=== PATIENT | male | born 1960 | race African-American/Black ===

== ENCOUNTER 2019-06-06 09:49 | Emergency (ER) | payer OTHER, BC, SELFPAY ==
[~2019-06-06] VITALS: Ht 180.3 cm; Wt 67.1 kg
[2019-06-06 09:51] VITALS: BP 136/74
[2019-06-06 10:35] LABS: BASOPHILS # (AUTO) 0.1 K/uL (0.00-0.22); BASOPHILS % (AUTO) 0.7 % (0.0-2.0); EOSINOPHILS % (AUTO) 0.2 % (0.0-4.0); HEMATOCRIT 36.2 % (36-52); LYMPHOCYTES # (AUTO) 0.7 K/uL (2.0-11.5); LYMPHOCYTES % (AUTO) 5.7 % (20.5-51.1); MEAN CORPUSCULAR HEMOGLOBIN 31 pg (27-31); MEAN CORPUSCULAR HGB CONC 33 g/dL (33-37); MEAN CORPUSCULAR VOLUME 94.6 fL (80-94); MONOCYTES # (AUTO) 1.2 K/uL (0.8-1.0); NEUTROPHILS % (AUTO) 83.4 % (42.2-75.2); PLATELET COUNT (AUTO) 245 K/uL (140-450); RED BLOOD CELL COUNT(AUTO) 3.83 MIL/uL (4.20-6.10)
[2019-06-06 10:52] LABS: ALBUMIN 2.7 g/dL (3.4-5.0); TOTAL BILIRUBIN 0.5 mg/dL (0.0-1.0)
[2019-06-06 10:57] LABS: CARBON DIOXIDE 21.8 mmol/L (21-32); POTASSIUM 4.3 mmol/L (3.5-5.1)
[2019-06-06 11:05] LABS: ANION GAP 24.5 (8-16)
[2019-06-06 11:13] LABS: WHITE BLOOD COUNT (AUTO) 11.9 K/uL (4.8-10.8)
[2019-06-06 11:42] VITALS: BP 131/77
== END 2019-06-06 11:43 | disposition home or self-care (01) ==
LOC: MED 09:49 → EEVIPCON 09:49 → MED 11:43
DX: E11.22 Type 2 diabetes mellitus with diabetic chronic kidney disease (principal); Z20.828 Contact with and (suspected) exposure to other viral communicable diseases; N18.6 End stage renal disease; J18.9 Pneumonia, unspecified organism; Z99.2 Dependence on renal dialysis; Z88.0 Allergy status to penicillin; Z88.1 Allergy status to other antibiotic agents; Z98.890 Other specified postprocedural states
CPT/HCPCS: 36415; 71045; 80053; 85025; 87635; 99284; Q0092

== ENCOUNTER 2019-06-10 15:09 | Inpatient (IN) | payer OTHER, BC ==
[~2019-06-10] VITALS: Ht 180.3 cm; Wt 64.9 kg
[2019-06-10 15:15] VITALS: BP 120/66
--- NOTE | 2019-06-10 15:26 | NUR ---
Pt wheelchair assisted to bed 12
[2019-06-10] MEDS ORDERED: MORPHINE SULFATE 4 MG/ML SYR IVP ONE (15:40)
--- NOTE | 2019-06-10 15:47 | NUR ---
Pt moved to bed 5 via [facility]
--- NOTE | 2019-06-10 15:49 | NUR ---
DR. BEDOYA MADE AWARE THAT PT IS ANURIC.
--- NOTE | 2019-06-10 15:51 | NUR ---
XR AT BEDSIDE.
--- NOTE | 2019-06-10 15:55 | NUR ---
58 YO M C/C OF 10/10 LEFT FOOT PAIN. THE FOOT IS COLD TO TOUCH AND NECTROTIC WITH SLOUGHING. POSTERIOR TIBIAL PULSES FELT BILATERALLY. NOT ABLE TO PALPATE A DORSALIS PEDIS PULSE. PT SAYS HIS FOOT ALWAYS HURTS BUT HAS INCREASED TO 10/10 X2 WEEKS NOW, STATES HE WAS UNAWARE THERE WAS AN OPEN WOUND. PT HAS A PARTIAL L FOOT AMPUTATION THAT WAS PERFORMED 7 YEARS AGO. A&OX4. PT DENIES TRAVEL, SOB, COUGH, OR FEVER BUT STATES HE WAS SWABBED FOR COVID HERE 2 DAYS AGO AND IS WAITING FOR RESULTS. ALLERGIES TO PENICILLIN, AMOXICILLIN MED HX: LEFT FOOT AMPUTATION, DM, HTN, 25% EF PER PATIENT, BLIND RX: NOVALOG, LEVAMIR, LISINOPRIL, FOLIC ACID, MIDODRINE, NEPHROCAPS,
--- NOTE | 2019-06-10 15:55 | NUR ---
Note undone in EDM - 06/10/19 at 1628 by [facility] 58 YO M C/C OF 10/10 LEFT FOOT PAIN. THE FOOT IS COLD TO TOUCH AND NECTROTIC WITH SLOUGHING. PT SAYS HIS FOOT ALWAYS HURTS BUT HAS INCREASED TO 10/10 X1 WEEK NOW. PT HAS A PARTIAL L FOOT AMPUTATION THAT WAS PERFORMED 7 YEARS AGO. A&OX4. PT DENIES TRAVEL, SOB, COUGH, OR FEVER BUT STATES HE WAS SWABBED FOR COVID HERE 2 DAYS AGO AND IS WAITING FOR RESULTS. ALLERGIES TO PENICILLIN, AMOXICILLIN MED HX: LEFT FOOT AMPUTATION, DM, HTN, 25% EF PER PATIENT
[2019-06-10 16:29] LABS: BASOPHILS # (AUTO) 0.1 K/uL (0.00-0.22); BASOPHILS % (AUTO) 0.7 % (0.0-2.0); EOSINOPHILS # (AUTO) 0.3 K/uL (0-0.4); EOSINOPHILS % (AUTO) 2.4 % (0.0-4.0); HEMATOCRIT 33.5 % (36-52); HEMOGLOBIN 11.1 g/dL (12.0-18.0); LYMPHOCYTES % (AUTO) 7.3 % (20.5-51.1); MEAN CORPUSCULAR HEMOGLOBIN 31 pg (27-31); MEAN CORPUSCULAR HGB CONC 33 g/dL (33-37); MEAN CORPUSCULAR VOLUME 94.1 fL (80-94); MONOCYTES # (AUTO) 0.7 K/uL (0.8-1.0); MONOCYTES % (AUTO) 4.8 % (1.7-9.3); NEUTROPHILS # (AUTO) 11.7 K/uL (1.8-7.7); NEUTROPHILS % (AUTO) 84.8 % (42.2-75.2); PLATELET COUNT (AUTO) 229 K/uL (140-450); RED BLOOD CELL COUNT(AUTO) 3.56 MIL/uL (4.20-6.10); RED CELL DISTRIBUTION WIDTH 16.5 % (11.6-13.7); WHITE BLOOD COUNT (AUTO) 13.8 K/uL (4.8-10.8)
[2019-06-10] MEDS ORDERED: LEVOFLOXACIN 750 MG/D5W PREMIX 150 ML IV ONE (16:40)
[2019-06-10] MEDS ORDERED: NACL 0.9% 500 ML IV ONE (16:40)
[2019-06-10] MEDS ORDERED: MORPHINE SULFATE 2 MG/ML SYR IVP ONE (16:40)
[2019-06-10 16:45] LABS: PROTHROMBIN TIME 10.6 secs (10.8-13.4)
[2019-06-10 16:46] LABS: ALBUMIN 2.5 g/dL (3.4-5.0); ANION GAP 15.4 (8-16); CARBON DIOXIDE 27.8 mmol/L (21-32); POTASSIUM 4.2 mmol/L (3.5-5.1); TOTAL BILIRUBIN 0.4 mg/dL (0.0-1.0)
[2019-06-10 16:51] LABS: CREATININE 9.9 mg/dL (0.6-1.3)
[2019-06-10] MEDS ORDERED: ACETAMINOPHEN 325 MG TAB PO PRN (17:10)
[2019-06-10] MEDS ORDERED: DOCUSATE SODIUM 100 MG GELCAP PO PRN (17:10)
[2019-06-10] MEDS ORDERED: ONDANSETRON 4 MG/2 ML VIAL IM/IVP PRN (17:10)
[2019-06-10] MEDS ORDERED: VANCOMYCIN PER PHARMACY MC PRN (17:10)
--- NOTE | 2019-06-10 17:50 | NUR ---
PT RESTING IN BED, SIDE RAIL X1
[2019-06-10] MEDS ORDERED: DOXY100C9 PO (17:54)
[2019-06-10] MEDS ORDERED: INSU-1331 SC (17:55)
[2019-06-10] MEDS ORDERED: INSU100S54 SC (17:56)
[2019-06-10] MEDS ORDERED: DOCU100C16 PO (18:01)
[2019-06-10] MEDS ORDERED: SODI650T2 PO (18:02)
[2019-06-10] MEDS ORDERED: SEN30 PO (18:04)
[2019-06-10] MEDS ORDERED: MULT-1469 PO (18:06)
[2019-06-10] MEDS ORDERED: OMEP20TC12 PO (18:06)
[2019-06-10] MEDS ORDERED: CARV3.12 PO (18:09)
[2019-06-10] MEDS ORDERED: FOLI1TAB90 PO (18:09)
[2019-06-10] MEDS ORDERED: LISI2.5T12 PO (18:10)
[2019-06-10 18:33] LABS: MAGNESIUM 2.1 mg/dL (1.8-2.4); PHOSPHORUS 2.1 mg/dL (2.5-4.9); THYROID STIMULATING HORMONE 2.39 uIU/mL (0.34-3.74)
[2019-06-10] MEDS ORDERED: VANCOMYCIN 1,000 MG in DEXTROSE 5% 250 ML IV ONE (19:05)
--- NOTE | 2019-06-10 19:17 | NUR ---
RECEIVED BEDSIDE REPORT FROM ER NURSE. TRANSFERRED THE PATIENT SAFELY FROM [facility] TO HIS BED. PATIENT IS AOX4. RESPIRATION EVEN AND UNLABORED. NO SOB. DENIES PAIN. PATIENT IS BLIND. IV SITE TO LFA 18G. PATIENT IS ANURIC PER ENDORSEMENT. DIALYSIS IS Q M-W-. DIALYSIS ACCESS TO LEFT GROIN. LEFT=RIGHT AV FISTULA IS NOT WORKING PER ENDORSED. (-) COVID SWAB. LOW BED AND BED ALARM IN PLACE. CALL LIGHT WITHIN REACH.
[2019-06-10] MEDS ORDERED: ALBUTEROL SULFATE/IPRATROPIU 3 ML SOL IH PRN (19:20)
[2019-06-10] MEDS ORDERED: SODIUM PHOS / POTASSIUM PHOS 1 PKT PDR PO ONE (19:20)
[2019-06-10] MEDS ORDERED: DEXTROSE 50% 50 ML SYR IVP PRN (19:20)
[2019-06-10] MEDS ORDERED: MORPHINE SULFATE 2 MG/ML SYR IVP PRN (19:20)
--- NOTE | 2019-06-10 19:20 | NUR ---
Patient will be admitted to care of [facility]. Admited to tele. Will go to room 124b. Belongings list completed. Report to chacorta VASQUEZ.
[2019-06-10] MEDS: NACL 0.9% 1,000 ML IV SCH (20:30)
[2019-06-10] MEDS: SODIUM BICARBONATE 650 MG TAB PO SCH (20:47)
[2019-06-10] MEDS: DOCUSATE SODIUM 100 MG GELCAP PO SCH (20:50)
[2019-06-10] MEDS: CARVEDILOL 3.125 MG TAB PO SCH (20:50)
[2019-06-10] MEDS ORDERED: VANCOMYCIN 1,000 MG VIAL ONE (20:58)
--- NOTE | 2019-06-10 21:00 | NUR ---
DUE MEDS GIVEN ORDERED. MED EDUCATION PROVIDED. PATIENT REFUSED COLACE SOFTGEL AND COREG TAB. EXPLAINED RISKS AND BENEFITS, STILL PATIENT REFUSED TO TAKE. CALL LIGHT WITHIN REACH. WILL CONTINUE TO MONITOR.
[2019-06-10] MEDS ORDERED: SODIUM PHOS / POTASSIUM PHOS 1 PKT PDR ONE (21:03)
--- NOTE | 2019-06-10 21:32 | NUR ---
PATIENT C/O L FOOT PAIN 10/08. ENCOURAGED RELAXATION, DEEP BREATHING. GAVE MORPHINE PRN OS ORDERED. TOLERATED WELL.
[2019-06-10] MEDS: BLOOD GLUCOSE MONITORING 1 DEV DEV FS SCH (21:33)
[2019-06-10] MEDS: INSULIN LISPRO SLIDING SCALE 100 UNITS/ML VIAL SUBQ PRN (21:40)
--- NOTE | 2019-06-10 22:32 | NUR ---
PATIENT IS SLEEPING, AROUSABLE TO VERBAL. DENIES PAIN.
[2019-06-11] VITALS: BP 123/55
--- NOTE | 2019-06-11 01:30 | NUR ---
PATIENT IS SLEEPING. RESPIRATION EVEN AND UNLABORED, NO SOB NOTED. CALL LIGHT WITHIN REACH. WILL CONTINUE TO MONITOR
--- NOTE | 2019-06-11 03:30 | NUR ---
GOT SWAB TO PATIENT'S L FOOT. TOLERATED WELL
[2019-06-11 04:00] VITALS: BP 123/57
[2019-06-11 06:16] LABS: BASOPHILS # (AUTO) 0.1 K/uL (0.00-0.22); BASOPHILS % (AUTO) 1.1 % (0.0-2.0); EOSINOPHILS # (AUTO) 0.3 K/uL (0-0.4); EOSINOPHILS % (AUTO) 2.7 % (0.0-4.0); HEMATOCRIT 31.8 % (36-52); HEMOGLOBIN 10.5 g/dL (12.0-18.0); MEAN CORPUSCULAR HEMOGLOBIN 31 pg (27-31); MEAN CORPUSCULAR HGB CONC 33 g/dL (33-37); MEAN CORPUSCULAR VOLUME 94.6 fL (80-94); MONOCYTES # (AUTO) 0.7 K/uL (0.8-1.0); MONOCYTES % (AUTO) 5.8 % (1.7-9.3); NEUTROPHILS # (AUTO) 9.5 K/uL (1.8-7.7); PLATELET COUNT (AUTO) 226 K/uL (140-450); RED BLOOD CELL COUNT(AUTO) 3.36 MIL/uL (4.20-6.10); RED CELL DISTRIBUTION WIDTH 16.2 % (11.6-13.7); WHITE BLOOD COUNT (AUTO) 11.6 K/uL (4.8-10.8)
--- NOTE | 2019-06-11 06:16 | NUR ---
CCHECKED PATIENT'S BLOOD SUGAR 177. WILL GIVE HUMALOG 2 UNITS ORDERED. PATIENT REMAINS ON NPO EXCEPT MEDS. DENIES PAIN. NOT IN ANY ACUTE DISTRESS. CONTINUE TO MONITOR.
[2019-06-11] MEDS: BLOOD GLUCOSE MONITORING 1 DEV DEV FS SCH ×4 (06:32→21:00)
[2019-06-11] MEDS: INSULIN LISPRO SLIDING SCALE 100 UNITS/ML VIAL SUBQ PRN ×2 (06:33→21:56)
[2019-06-11 06:43] LABS: ANION GAP 17.3 (8-16); CARBON DIOXIDE 25.2 mmol/L (21-32); POTASSIUM 4.5 mmol/L (3.5-5.1)
[2019-06-11 06:47] LABS: PHOSPHORUS 2.8 mg/dL (2.5-4.9)
[2019-06-11 06:51] LABS: CHOL/HDL RATIO 2.7 (1-4.5)
--- NOTE | 2019-06-11 07:16 | NUR ---
BEDSIDE REPORT WAS GIVEN TO AM SHIFT RN FOR CONTINUITY OF CARE.
--- NOTE | 2019-06-11 07:21 | NUR ---
RECEIVED BEDSIDE REPORT FROM NIGHTSHIFT NURSE. PT RESTING IN BED. ABLE TO MAKE NEEDS KNOWN. RESPIRATIONS EVEN AND UNLABORED WITH NO SOB OR RESPIRATORY DISTRESS. SKIN WARM AND DRY TO TOUCH. IV SITE IN LFA 18G IS CLEAN, DRY, AND INTACT. SAFETY MEASURES IN PLACE. WILL CONTINUE TO MONITOR
[2019-06-11 07:28] LABS: CREATININE 10.5 mg/dL (0.6-1.3)
--- NOTE | 2019-06-11 07:28 | NUR ---
RECEIVED CRITICAL LAB FROM CHEMISTRY. BUN 77 AND CR IS 10.5. RESIDENT IS AWARE. SAFETY MEASURES IN PLACE. WILL CONTINUE TO MONITOR
[2019-06-11 07:33] LABS: NEUTROPHILS % (AUTO) 81.4 % (42.2-75.2)
[2019-06-11 08:00] VITALS: BP 134/62
--- NOTE | 2019-06-11 09:45 | NUR ---
PODIATRY AT BEDSIDE TO DO WOUND CARE WELL ASSESSMENT. SAFETY MEASURES IN PLACE. WILL CONTINUE TO MONITOR
[2019-06-11] MEDS: DOCUSATE SODIUM 100 MG GELCAP PO SCH ×2 (10:26→22:07)
[2019-06-11] MEDS: LISINOPRIL 5 MG TAB PO SCH (10:27)
[2019-06-11] MEDS: SODIUM BICARBONATE 650 MG TAB PO SCH ×2 (10:27→22:08)
[2019-06-11] MEDS: VIT-B COMP/VIT-C/FOLIC ACID 1 TAB PO SCH (10:28)
[2019-06-11] MEDS: PANTOPRAZOLE 40 MG TABEC PO SCH (10:28)
[2019-06-11] MEDS: LACTOBACILLUS RHAMNOSUS GG 1 EACH CAP PO SCH (10:28)
[2019-06-11] MEDS: CINACALCET 30 MG TAB PO SCH ×3 (10:29→17:06)
[2019-06-11] MEDS: HYDROmorphone 1 MG/ML AMP IVP PRN ×2 (10:29→22:02)
[2019-06-11] MEDS: CARVEDILOL 3.125 MG TAB PO SCH ×2 (10:29→22:08)
--- NOTE | 2019-06-11 10:29 | NUR ---
PT CALLED AND COMPLAINED OF SEVERE PAIN. PRN PAIN MEDICATION ADMINISTERED PRESCRIBED PER MD ORDER. WASTED MED WITH 2ND NURSE. SAFETY MEASURES IN PLACE. WILL CONTINUE TO MONITOR
--- NOTE | 2019-06-11 10:35 | NUR ---
ADMINISTERED SCHED MED PRESCRIBED PER MD ORDER. PT TOLERATED WELL. MEDICATION EDUCATION PERFORMED. PT VERBALIZED UNDERSTANDING. SAFETY MEASURES IN PLACE. WILL CONTINUE TO MONITOR
--- NOTE | 2019-06-11 11:00 | NUR ---
PT IS GOING TO RECEIVE HD TODAY. DIALYSIS NURSE MITZI WAS MADE AWARE. SAFETY MEASURES IN PLACE. WILL CONTINUE TO MONITOR
--- NOTE | 2019-06-11 11:30 | NUR ---
PT BLOOD SUGAR IS 116. NO INSULIN COVERAGE NEEDED AT THIS TIME. SAFETY MEASURES IN PLACE. WILL CONTINUE TO MONITOR
[2019-06-11 12:00] VITALS: BP 124/58
[2019-06-11] MEDS ORDERED: VITAMIN A/VITAMIN D OINT 113 GM TUBE TP SCH (12:00)
--- NOTE | 2019-06-11 13:19 | NUR ---
ADMINISTERED SCHED MED PRESCRIBED PER MD ORDER. PT TOLERATED WELL. MEDICATION EDUCATION PERFORMED. PT VERBALIZED UNDERSTANDING. SAFETY MEASURES IN PLACE. WILL CONTINUE TO MONITOR
[2019-06-11] MEDS: HYDROcodone/APAP 5/325 MG 1 TAB TAB PO PRN (14:27)
--- NOTE | 2019-06-11 14:27 | NUR ---
PT CALLED AND COMPLAINED OF MODERATE PAIN. PRN PAIN MEDICATION NORCO ADMINISTERED PRESCRIBED PER MD ORDER. PT TOLERATED WELL. MEDICATION EDUCATION PERFORMED. PT VERBALIZED UNDERSTANDING. SAFETY MEASURES IN PLACE. WILL CONTINUE TO MONITOR
[2019-06-11 16:00] VITALS: BP 114/61
--- NOTE | 2019-06-11 16:30 | NUR ---
PT BLOOD SUGAR IS 146. NO INSULIN COVERAGE NEEDED AT THIS TIME. DIALYSIS NURSE ELÍAS IS HERE. REPORT GIVEN AT BEDSIDE. SAFETY MEASURES IN PLACE. WILL CONTINUE TO MONITOR
--- NOTE | 2019-06-11 17:07 | NUR ---
ADMINISTERED SCHED MED PRESCRIBED PER MD ORDER. PT TOLERATED WELL. MEDICATION EDUCATION PERFORMED. PT VERBALIZED UNDERSTANDING. SAFETY MEASURES IN PLACE. WILL CONTINUE TO MONITOR
[2019-06-11] MEDS: NACL 0.9% 1,000 ML IV SCH (17:10)
--- NOTE | 2019-06-11 18:23 | NUR ---
HOURLY ROUNDING. PT RESTING IN BED. ABLE TO MAKE NEEDS KNOWN. RESPIRATIONS EVEN AND UNLABORED WITH NO SOB OR RESPIRATORY DISTRESS. SKIN WARM AND DRY TO TOUCH. SAFETY MEASURES IN PLACE. WILL CONTINUE TO MONITOR
--- NOTE | 2019-06-11 19:05 | NUR ---
RECEIVED REPORT AT BEDSIDE FORM SENIA VASQUEZ DAYSHIFT NURSE FOR CONTINUITY OF CARE, PT IN STABLE CONDITION SITTING UP IN BED EATING DINNER WHILE RECEIVING DIALYSIS AT THIS TIME. ALL FALLS PRECAUTIONS IN PLACE.
--- NOTE | 2019-06-11 19:05 | NUR ---
ENDORSED AT BEDSIDE WITH NIGHTSHIFT NURSE. PT IS STABLE
--- NOTE | 2019-06-11 19:50 | NUR ---
HD COMPLETED 3 LITERS OUT LAST B/P 123/63. PT COMPLETED ABOUT 50% OF HIS DINNER. NO C/O VOICED.
[2019-06-11 20:00] VITALS: BP 117/72
--- NOTE | 2019-06-11 20:00 | NUR ---
PT IN BED AOX4 , DENIES PAIN AT THIS TIME, HE HAS A LF/A 18G RUNNING N/S AT 10MLS/HR. IV SITE FLUSHED PATENT AND IS ASYMPTOMATIC. PT DRESSING ON LEFT FOOT INTACT AND DRY , HD DRESSING ON LEFT GROIN DRY AND INTACT. V/S FOLLOWS: T 98.3 P 96 R 18 B/P 117/72 02 100% ON ROOM AIR. ALL REQUESTED NEEDS ATTENDED BY STAFF. ALL FALLS PRECAUTIONS IN PLACE.
--- NOTE | 2019-06-11 21:00 | NUR ---
PT GIVEN ALL DUE MEDS OF FLAGYL IV ABT, COLACE, COREG, SODIUM BICARBONATE WELL HEPARIN SQ. (PLATELETS 226)PT EDUCATION REGARDING MEDICATION PROVIDED AT BEDSIDE, PT VERBALIZED UNDERSTANDING. FINGERSTICK IS 216 4 UNITS OF HUMALOG COVERAGE GIVEN. ALL REQUESTED NEEDS ATTENDED AND ALL FALLS PRECAUTIONS IN PLACE.
--- NOTE | 2019-06-11 22:10 | NUR ---
PT C/O OF SEVERE 9/10 PAIN IN LEFT FOOT. PT GIVEN IVP PRN DILAUDID. WILL MONITOR FOR EFFECT.
[2019-06-11] MEDS: metroNIDAZOLE 500 MG/NS PREMIX 100 ML IV SCH (22:11)
[2019-06-12] VITALS: BP 111/61
--- NOTE | 2019-06-12 | NUR ---
PT IN BED RESTING WITH EYES CLOSED BUT AROUSABLE TO NAME AND LIGHT TOUCH. IV SITE ON LEFT F/A INTACT AND RUNNING 10MLS/TO KVO. V/S FOLLOWS: T 98.3 P 97 R 18 B/P 111/61 02 97% ON ROOM AIR. ALL FALLS PRECAUTIONS IN PLACE.
--- NOTE | 2019-06-12 02:00 | NUR ---
PT IN BED ASLEEP NO S/S OF PAIN OR DISTRESS NOTED. N/S RUNNING AT 10MLS/HR TO KVO ALL FALLS PRECAUTIONS IN PLACE.
[2019-06-12 04:00] VITALS: BP 120/56
--- NOTE | 2019-06-12 04:00 | NUR ---
PT IN BED AROUSABLE TO NAME AND LIGHT TOUCH, V/S WITH IN NORMAL LIMITS NO C/O VOICED AT THIS TIME. ALL FALLS PRECAUTIONS IN PLACE.
[2019-06-12] MEDS: metroNIDAZOLE 500 MG/NS PREMIX 100 ML IV SCH ×3 (05:28→20:30)
[2019-06-12] MEDS: HYDROmorphone 1 MG/ML AMP IVP PRN (05:29)
--- NOTE | 2019-06-12 05:30 | NUR ---
PT IN BED FINGERSTICK DONE IT IS 172, S/S HUMALOG COVERAGE OF 2 UNITS GIVEN . PT C/O OF 8/10 PAIN IN LEFT FOOT, GIVEN DILAUDID IVP, WILL MONITOR FOR PAIN RELIEF. ALSO PT WAS GIVEN THE ORDERED FLAGYL IV AT THIS TIME. LAB DRAWS AT BEDSIDE.
[2019-06-12] MEDS: INSULIN LISPRO SLIDING SCALE 100 UNITS/ML VIAL SUBQ PRN ×3 (05:47→20:41)
[2019-06-12] MEDS: BLOOD GLUCOSE MONITORING 1 DEV DEV FS SCH ×4 (05:49→21:00)
[2019-06-12 06:12] LABS: BASOPHILS # (AUTO) 0.1 K/uL (0.00-0.22); BASOPHILS % (AUTO) 0.6 % (0.0-2.0); EOSINOPHILS # (AUTO) 0.3 K/uL (0-0.4); EOSINOPHILS % (AUTO) 2.9 % (0.0-4.0); HEMATOCRIT 33.8 % (36-52); HEMOGLOBIN 11.3 g/dL (12.0-18.0); LYMPHOCYTES # (AUTO) 0.8 K/uL (2.0-11.5); MEAN CORPUSCULAR HEMOGLOBIN 32 pg (27-31); MEAN CORPUSCULAR HGB CONC 33 g/dL (33-37); MEAN CORPUSCULAR VOLUME 94.2 fL (80-94); MONOCYTES # (AUTO) 0.7 K/uL (0.8-1.0); MONOCYTES % (AUTO) 6.4 % (1.7-9.3); NEUTROPHILS # (AUTO) 9.4 K/uL (1.8-7.7); NEUTROPHILS % (AUTO) 83.1 % (42.2-75.2); PLATELET COUNT (AUTO) 243 K/uL (140-450); RED BLOOD CELL COUNT(AUTO) 3.59 MIL/uL (4.20-6.10); RED CELL DISTRIBUTION WIDTH 16.3 % (11.6-13.7); WHITE BLOOD COUNT (AUTO) 11.3 K/uL (4.8-10.8)
[2019-06-12 06:54] LABS: CARBON DIOXIDE 24.4 mmol/L (21-32); POTASSIUM 4.4 mmol/L (3.5-5.1)
--- NOTE | 2019-06-12 07:10 | NUR ---
ENDORSED TO NIGHT NURSE, PT IS STABLE
--- NOTE | 2019-06-12 07:20 | NUR ---
REPORT GIVEN TO KIMBERLY VASQUEZ DAYSHIFT NURSE AT BEDSIDE FOR CONTINUITY OF CARE, PT IN STABLE CONDITION.
--- NOTE | 2019-06-12 07:22 | NUR ---
RECEIVED REPORT FROM NIGHT NURSE, PT IS STABLE CONDITION AWAKE AND ALERT LYING IN BED, NO DISTRESS NOTED. SAFETY MEASURES IN PLACE AND CALL LIGHT WITHIN REACH. WILL CONTINUE TO MONITOR.
[2019-06-12 08:00] VITALS: BP 117/63
[2019-06-12] MEDS: VIT-B COMP/VIT-C/FOLIC ACID 1 TAB PO SCH (08:46)
[2019-06-12] MEDS: DOCUSATE SODIUM 100 MG GELCAP PO SCH ×2 (08:47→20:31)
[2019-06-12] MEDS: CINACALCET 30 MG TAB PO SCH ×3 (08:47→16:56)
[2019-06-12] MEDS: LACTOBACILLUS RHAMNOSUS GG 1 EACH CAP PO SCH (08:48)
[2019-06-12] MEDS: SODIUM BICARBONATE 650 MG TAB PO SCH ×2 (08:49→20:33)
[2019-06-12] MEDS: CARVEDILOL 3.125 MG TAB PO SCH ×2 (09:00→20:31)
[2019-06-12] MEDS: EPOETIN ALFA 4,000 UNITS/ML VIAL SUBQ SCH (09:00)
[2019-06-12] MEDS: LISINOPRIL 5 MG TAB PO SCH (09:00)
--- NOTE | 2019-06-12 09:02 | NUR ---
MEDICATIONS DUE GIVEN AND PT IS STABLE. SCHEDULED FOR HEMODIALYSIS TODAY. WILL CONTINUE TO MONITOR.
--- NOTE | 2019-06-12 09:06 | NUR ---
PATIENT HAS BEEN SCREENED AND CATEGORIZED HIGH NUTRITION RISK. PATIENT WILL BE SEEN WITHIN 1-2 DAYS OF ADMISSION. 06/12/[address]
--- NOTE | 2019-06-12 09:37 | NUR ---
WOUND CARE CONSULT NOT DONE. PT. SEEN AND TREATED BY IN HOUSE HOTEL SALES MANAGER.
--- NOTE | 2019-06-12 10:50 | NUR ---
DC PLANNIN YRS OLD MALE PATIENT WAS ADMITTED FROM HOME WITH A DX OF OSTEOMYELITIS.PT HAS A HX OF ESRD ON HEMODIALYSIS WITH DR SIDDIQUI , SANDRA AND CAD. CXR SHOWED PNEUMONIA TESTED COVID-19 WHICH IS NEGATIVE. PT IS BLIND ,WHEELCHAIR BOUND . XRAY OF LEFT FOOT SHOWED MILD SOFT TISSUE SWELLING IDENTIFIED BLOOD AND WOUND CULTURES ARE PENDING. ADMINISTERED IV ABX LEVAQUIN AND VANCOMYCIN. CONSULT WITH ID DR ARCHIBALD AND PODIATRY.DC PLAN PER MD RECOMMENDATION. CM TO FOLLOW Addendum: 06/13/19 at 1125 by Hailey Heredia CM DC PLANNING: SEEN BY DR ARCHIBALD CONTINUE CURRENT TREATMENT,DR DUMONT PODIATRY PERFORMED DEBRIDEMENT AND SURGERY ON THE LEFT FOOT AND RECOMMENDED F/U WITH IN ONE WEEK AFTER DISCHARGE. DC PLAN TO GO TO SNF FOR WOUND CARE AND IV ABX. I REACHED OUT THE PATIENT WHICH IS ALERT AND ORIENTED ASKED HIM WHICH SNF HE WANTED TO GO. PT CHOSE AND REQUESTED DR DAVILA'[facility] GROUP TO FOLLOW UP. FROM ALL THE VENDORS PT CHOSE [facility]. FAXED TO [facility] ALL THE PAPER WORK. CM TO FOLLOW. Addendum: 06/13/19 at 1222 by Hailey Heredia CM DC PLANNING: PATIENT STATED HE GOES TO [facility] AND THE TRANSPORTER IS [facility]. CALLED [facility]SP[facility] [phone] SPOKE WITH LIZETHGAUDENCIO NOTIFIED THAT PT IS GOING TO [facility]. THE SUBSTANCE ABUSE COUNSELOR ADDRESS [address] [place], [address] # [phone]. NO CHANGE ON DIALYSIS DAYS AND CHAIR TIME. 7:45 AM . RECEIVED A CALL FROM [facility] meevl [phone] NOTIFIED THEM PT WILL BE GOING TO SNF FOR IV ABX AND WOUND CARE. DC PLAN TOMORROW 06/14/19 . Addendum: 06/13/19 at 1417 by Hattie Ellsworth CM CONTACTED [facility] AT [phone], ABLE TO SPEAK TO NURSE HOBBS. SHE STATED NO NEED FOR COVID TESTING SINCE PATIENT WAS TESTED NEGATIVE TWICE ON JUN 06, 2019. SHE ALSO CONFIRMED THAT PATIENT IS GOOD TO GO FOR THURS AT 0845 AM. Addendum: 06/14/19 at 1021 by Hailey Heredia DC PLANNING: PT IS ACCEPTED AT [facility] GOING TO ROOM 20A .# TO GIVE REPORT [phone] ARRANGED TRANSPORT WITH [employer] SUBSTANCE ABUSE COUNSELOR TIME 3PM. NOTIFIED JAI VASQUEZ . CARLOS MENDEZ FROM [facility] WILL PAY FOR TRANSPORT NOTIFIED ZEINA AT [employer] .
[2019-06-12 12:00] VITALS: BP 108/71
[2019-06-12] MEDS: PANTOPRAZOLE 40 MG TABEC PO SCH (12:17)
--- NOTE | 2019-06-12 12:18 | NUR ---
MEDICATION DUE GIVEN AND BLOOD GLUCOSE MONITORING DONE.
--- NOTE | 2019-06-12 13:33 | NUR ---
DUE MEDICATIONS GIVEN AND PT IS ON HEMODIALYSIS NOW. PT IS SATBLE. WILL CONTINUE TO MONITOR
--- NOTE | 2019-06-12 13:59 | NUR ---
Customer Account Executive Note: Basic Screen: Yes High Risk DC Screen [place]: DESHAWN Trinidad Relationship: SON Pre-Admission Living Arrangements: Lives Alone Prior ADL Independent Current Home Health Name/Tel: [facility] Current DME/02 Name/Tel: [facility] Current Hospice Name/Tel: N/A Current Dialysis Name/Tel: [facility] - /EMANI/SAT 8:45AM Healthcare Decision Maker: Patient Advance Directive No Physician Orders for Life Sustaining Treatment Form Yes Information Taught: Advance Directive Person Taught: Patient Teaching Tools: Verbal Factors Affecting Learning: None Participation Level: Refused Evaluation: Verbalizes Understanding Needs Additional Education: No Discipline: Case Mgt/Social Svcs Tentative Discharge Plan/Destination: No Needs Identified Will require assistance post discharge: No Referred to Continuity Clerk: No Tentative Discharge Plan Summary: Patient is a 58-year-old male admitted for osteomyelitis. Patient has PMHX of cardiac disorders, diabetes, and renal disease. Patient was admitted from home. SW met with patient at bedside to verify demographics. Patient stated that he lives alone but is checked on daily by family members, neighbors, and friends. Patient also stated that he has a house keeper and receives home health from [facility]. Patient stated that all his needs are met and that he is able to complete all ADLs independently. Patient reported no history of substance abuse or mental health. Tentative discharge plan is for patient to return home. No further needs identified. Signature: CLARE Cano Date: Jun 12, 2019 Time: 13:53
--- NOTE | 2019-06-12 14:30 | NUR ---
06/12/19 RD INITIAL ASSESSMENT COMPLETED PLEASE REFER TO NUTRITION ASSESSMENT UNDER CARE ACTIVITY FOR ESTIMATED NUTRITIONAL NEEDS. 1. CONTINUE RENAL AND CCHO 60GM DIET TOLERATED 2. RECOMMEND SUSAN BID 3. CONTINUE NEPHRO-ACOSTA QD 4. RD TO FOLLOW-UP 3-5 DAYS, MODERATE RISK MONCHO GALLEGOS, RD
[2019-06-12 16:00] VITALS: BP 113/73
--- NOTE | 2019-06-12 16:30 | NUR ---
HEMODIALYSIS DONE AT THIS TIME. PT OUTPUT IS 3 LITERS AND BP: 125/72. WILL CONTINUE TO MONITOR.
[2019-06-12] MEDS: HYDROcodone/APAP 5/325 MG 1 TAB TAB PO PRN (16:56)
--- NOTE | 2019-06-12 17:07 | NUR ---
MEDICATIONS DUE GIVEN AND PT COMPLAINS OF PAIN ON THE FOOT. INFORMED DR DAVIS. GIVEN PAIN MEDICATIONS. WILL CONTINUE TO MONITOR.
[2019-06-12] MEDS ORDERED: LEVOFLOXACIN 750 MG/D5W PREMIX 150 ML IV SCH (17:10)
[2019-06-12] MEDS: NACL 0.9% 1,000 ML IV SCH (17:21)
[2019-06-12] MEDS ORDERED: VANCOMYCIN 1,000 MG in DEXTROSE 5% 250 ML IV SCH (18:30)
--- NOTE | 2019-06-12 18:42 | NUR ---
MEDICATIONS DUE GIVEN WILL CONTINUE TO MONITOR.
--- NOTE | 2019-06-12 19:11 | NUR ---
RECEIVED PT AAOX4 , NID - RA , DENIES ANY PAIN . IV SITES INTACT AND PATENT , W/ AV SHUNT ON R ARM (2) AND (1) ON LEFT GROIN , W/ IMPLANTED GLUCOMETER ON ABD. LEGALLY BLIND - SAFETY IN PLACE - CALL LIGHT WITHIN REACH . POC DISCUSSES AND VERBALIZE UNDERSTANDING . WILL CONT. TO MONITOR. ON TELE MONITOR.
--- NOTE | 2019-06-12 19:35 | NUR ---
PATIENT SATS 100% ON ROOM AIR. BREATH SOUNDS ARE CLEAR. NO SOB NOTED NO HHNTX NEEDED AT THIS TIME
[2019-06-12] MEDS: ATORVASTATIN 20 MG TAB PO SCH (20:32)
--- NOTE | 2019-06-12 22:00 | NUR ---
MADE ROUNDS, NO COMPLAIN MADE . CALL LIGHT WITHIN REACH . WILL CONT. TO MONITOR.
--- NOTE | 2019-06-13 | NUR ---
MADE ROUNDS , NO S/S OF ACUTE DISTRESS NOTED AT THIS TIME. CALL LIGHT WITHIN REACH.
[2019-06-13 00:03] VITALS: BP 121/70
[2019-06-13] MEDS: HYDROcodone/APAP 5/325 MG 1 TAB TAB PO PRN ×2 (01:21→01:23)
[2019-06-13 04:00] VITALS: BP 110/60
--- NOTE | 2019-06-13 04:00 | NUR ---
MADE ROUNDS . NO S/S OF ACUTE DISTRESS NOTED AT THIS TIME.
[2019-06-13] MEDS: metroNIDAZOLE 500 MG/NS PREMIX 100 ML IV SCH ×3 (05:00→20:41)
[2019-06-13 06:08] LABS: HEPATITIS A ANTIBODY IGM Negative (Negative); HEPATITIS B CORE AB TOTAL Negative (Negative); HEPATITIS B SURFACE ANTIBODY Reactive (.); HEPATITIS B SURFACE ANTIGEN Negative (Negative)
[2019-06-13 06:11] LABS: BASOPHILS # (AUTO) 0.1 K/uL (0.00-0.22); BASOPHILS % (AUTO) 0.8 % (0.0-2.0); EOSINOPHILS # (AUTO) 0.2 K/uL (0-0.4); EOSINOPHILS % (AUTO) 2.5 % (0.0-4.0); HEMATOCRIT 32.3 % (36-52); HEMOGLOBIN 10.8 g/dL (12.0-18.0); LYMPHOCYTES # (AUTO) 0.5 K/uL (2.0-11.5); LYMPHOCYTES % (AUTO) 5.2 % (20.5-51.1); MEAN CORPUSCULAR HEMOGLOBIN 32 pg (27-31); MEAN CORPUSCULAR HGB CONC 33 g/dL (33-37); MEAN CORPUSCULAR VOLUME 95.2 fL (80-94); MONOCYTES # (AUTO) 0.8 K/uL (0.8-1.0); MONOCYTES % (AUTO) 8.6 % (1.7-9.3); NEUTROPHILS # (AUTO) 7.5 K/uL (1.8-7.7); NEUTROPHILS % (AUTO) 82.9 % (42.2-75.2); PLATELET COUNT (AUTO) 250 K/uL (140-450); RED BLOOD CELL COUNT(AUTO) 3.39 MIL/uL (4.20-6.10); RED CELL DISTRIBUTION WIDTH 16.1 % (11.6-13.7)
[2019-06-13 06:12] LABS: MAGNESIUM 1.8 mg/dL (1.8-2.4); PHOSPHORUS 4.5 mg/dL (2.5-4.9)
[2019-06-13 06:50] LABS: ANION GAP 18.7 (8-16); CARBON DIOXIDE 21.9 mmol/L (21-32); POTASSIUM 4.6 mmol/L (3.5-5.1)
[2019-06-13 06:57] LABS: CREATININE 7.8 mg/dL (0.6-1.3)
--- NOTE | 2019-06-13 07:15 | NUR ---
RECEIVED REPORT FROM CHRISTINA ASHFORD. PATIENT IN BED, AWAKE, ALERT AND ORIENTED X4. INTRODUCED SELF. NO DISTRESS NOTED. IV INTACT AND PATENT TO LEFT FOREARM. PLANS OF CARE DISCUSSED. SAFETY MEASURES IN PLACE. CALL LIGHT WITHIN REACH.
--- NOTE | 2019-06-13 07:15 | NUR ---
ENDORSED - PT - STABLE Addendum: 06/13/19 at 0743 by Shahla Smith RN ENDORSED TO MANDEEP TO RELAY THE LATEST CREA AND VERIFICATION OF HD TOADY .
[2019-06-13] MEDS: BLOOD GLUCOSE MONITORING 1 DEV DEV FS SCH ×4 (07:20→20:41)
--- NOTE | 2019-06-13 07:50 | NUR ---
NOTIFIED MITZI DIALYSIS NURSE IN REGARDS TO PATIENT HAVING ORDERS FOR DIALYSIS TODAY.
[2019-06-13 08:00] VITALS: BP 120/67
[2019-06-13] MEDS: VIT-B COMP/VIT-C/FOLIC ACID 1 TAB PO SCH (08:01)
[2019-06-13] MEDS: DOCUSATE SODIUM 100 MG GELCAP PO SCH ×2 (08:02→20:44)
[2019-06-13] MEDS: PANTOPRAZOLE 40 MG TABEC PO SCH (08:02)
[2019-06-13] MEDS: LACTOBACILLUS RHAMNOSUS GG 1 EACH CAP PO SCH (08:02)
[2019-06-13] MEDS: SODIUM BICARBONATE 650 MG TAB PO SCH ×2 (08:02→20:43)
[2019-06-13] MEDS: CINACALCET 30 MG TAB PO SCH ×3 (08:02→17:15)
[2019-06-13] MEDS: INSULIN LISPRO SLIDING SCALE 100 UNITS/ML VIAL SUBQ PRN ×3 (08:03→17:14)
[2019-06-13] MEDS: CARVEDILOL 3.125 MG TAB PO SCH ×2 (08:03→20:55)
[2019-06-13] MEDS: LISINOPRIL 5 MG TAB PO SCH (08:03)
--- NOTE | 2019-06-13 08:07 | NUR ---
DR. SIDDIQUI AT BEDSIDE.
[2019-06-13] MEDS: ASPIRIN 81 MG TAB.CHEW PO SCH (08:09)
[2019-06-13] MEDS: HYDROmorphone 1 MG/ML AMP IVP PRN ×2 (10:34→17:09)
--- NOTE | 2019-06-13 11:00 | NUR ---
ROUNDS MADE. PATIENT ALERT, ORIENTED X4. NO DISTRESS NOTED. CALL LIGHT WITHIN REACH.
--- NOTE | 2019-06-13 13:12 | NUR ---
PT AAOX4. NO DISTRESS NOTED.LEFT FOOT WITH DRESSING, DRY AND INTACT.
--- NOTE | 2019-06-13 15:00 | NUR ---
DIALYSIS NURSE AT BEDSIDE.
[2019-06-13 16:00] VITALS: BP 110/67
[2019-06-13] MEDS: NACL 0.9% 1,000 ML IV SCH (17:07)
--- NOTE | 2019-06-13 17:35 | NUR ---
PATIENT IS STILL RECEIVING HEMODIALYSIS. DIALYSIS NURSE AT BEDSIDE.
--- NOTE | 2019-06-13 17:54 | NUR ---
PT FINISHED WITH DIALYSIS. CHRISTINA ALVARESFITTER AND TURNER NURSE STATED 3L OUTPUT NOTED. VS STABLE. PATIENT IS CURRENTLY EATING DINNER. Addendum: 06/13/19 at 1852 by Pedro Palafox RN BP: 119/72
--- NOTE | 2019-06-13 18:57 | NUR ---
PATIENT IS IN STABLE CONDITION. WILL ENDORSE TO NIGHT NURSE FOR CONTINUITY OF CARE.
--- NOTE | 2019-06-13 19:05 | NUR ---
RECEIVED ENDORSEMENT FROM AM SHIFT RN. PATIENT IS RESTING IN BED. RESPIRATION EVEN AND UNLABORED. DENIES PAIN. PATIENT'S BOTH EYES ARE BLIND. DIALYSIS ACCESS TO L GROIN. IV SITE TO [facility] G18. LOW BED AND BED ALARM IN PLACE. CALL LIGHT WITHIN REACH. PLAN OF CARE WAS DISCUSSED. WILL CONTINUE TO MONITOR.
[2019-06-13] MEDS: ATORVASTATIN 20 MG TAB PO SCH (20:43)
[2019-06-14] VITALS: BP 104/54
[2019-06-14] MEDS: HYDROmorphone 1 MG/ML AMP IVP PRN (01:32)
--- NOTE | 2019-06-14 01:32 | NUR ---
PATIENT C/O PAIN TO HIS L FOOT 10/08. ENCOURAGED RELAXATION TECHNIQUE. DILAUDID IVP GIVEN ORDERED. TOLERATED WELL.
--- NOTE | 2019-06-14 02:32 | NUR ---
PATIENT IS SLEEPING. NO PAIN NOTED. NO SOB NOTED.
[2019-06-14] MEDS: metroNIDAZOLE 500 MG/NS PREMIX 100 ML IV SCH ×2 (04:15→12:39)
--- NOTE | 2019-06-14 05:10 | NUR ---
PATIENT IS ASLEEP. RESPIRATION EVEN AND UNLABORED. NO SOB.
[2019-06-14 06:42] LABS: BASOPHILS # (AUTO) 0.1 K/uL (0.00-0.22); EOSINOPHILS # (AUTO) 0.2 K/uL (0-0.4); EOSINOPHILS % (AUTO) 1.6 % (0.0-4.0); HEMATOCRIT 34.7 % (36-52); HEMOGLOBIN 11.6 g/dL (12.0-18.0); LYMPHOCYTES # (AUTO) 0.8 K/uL (2.0-11.5); LYMPHOCYTES % (AUTO) 8.3 % (20.5-51.1); MEAN CORPUSCULAR HEMOGLOBIN 32 pg (27-31); MEAN CORPUSCULAR HGB CONC 33 g/dL (33-37); MEAN CORPUSCULAR VOLUME 94.9 fL (80-94); MONOCYTES # (AUTO) 0.6 K/uL (0.8-1.0); MONOCYTES % (AUTO) 6.8 % (1.7-9.3); NEUTROPHILS # (AUTO) 7.9 K/uL (1.8-7.7); NEUTROPHILS % (AUTO) 82.3 % (42.2-75.2); PLATELET COUNT (AUTO) 278 K/uL (140-450); RED BLOOD CELL COUNT(AUTO) 3.65 MIL/uL (4.20-6.10); RED CELL DISTRIBUTION WIDTH 16.7 % (11.6-13.7); WHITE BLOOD COUNT (AUTO) 9.5 K/uL (4.8-10.8)
[2019-06-14 06:50] LABS: MAGNESIUM 1.6 mg/dL (1.8-2.4); PHOSPHORUS 5.4 mg/dL (2.5-4.9)
[2019-06-14] MEDS: BLOOD GLUCOSE MONITORING 1 DEV DEV FS SCH ×2 (06:53→11:30)
[2019-06-14] MEDS: INSULIN LISPRO SLIDING SCALE 100 UNITS/ML VIAL SUBQ PRN ×2 (06:54→12:43)
--- NOTE | 2019-06-14 07:14 | NUR ---
PATIENT IS RESTING. NO SOB. ENDORSED PATIENT TO AM SHIFT RN FOR CONTINUITY OF CARE.
--- NOTE | 2019-06-14 07:15 | NUR ---
SHIFT REPORT RECEIVED FROM LABEL TACKER NURSE. PT IS IN BED ALERT AND RESPONSIVE. NO COMPLAINS OF PAIN OR DISTRESS NOTED. CALL LIGHT IN REACH. WILL CONTINUE TO MONITOR.
[2019-06-14 07:26] LABS: CARBON DIOXIDE 19.5 mmol/L (21-32); POTASSIUM 4.5 mmol/L (3.5-5.1)
[2019-06-14 07:30] LABS: CREATININE 7.9 mg/dL (0.6-1.3)
--- NOTE | 2019-06-14 07:56 | NUR ---
NO TX NEEDED AT THIS TIME.
[2019-06-14 08:00] VITALS: BP 98/58
[2019-06-14] MEDS: VIT-B COMP/VIT-C/FOLIC ACID 1 TAB PO SCH (08:35)
[2019-06-14] MEDS: CINACALCET 30 MG TAB PO SCH ×2 (08:35→12:39)
[2019-06-14] MEDS: PANTOPRAZOLE 40 MG TABEC PO SCH (08:36)
[2019-06-14] MEDS: DOCUSATE SODIUM 100 MG GELCAP PO SCH (08:36)
[2019-06-14] MEDS: LACTOBACILLUS RHAMNOSUS GG 1 EACH CAP PO SCH (08:37)
[2019-06-14] MEDS: ASPIRIN 81 MG TAB.CHEW PO SCH (08:37)
[2019-06-14] MEDS: SODIUM BICARBONATE 650 MG TAB PO SCH (08:39)
[2019-06-14] MEDS: EPOETIN ALFA 4,000 UNITS/ML VIAL SUBQ SCH (08:40)
[2019-06-14] MEDS: CARVEDILOL 3.125 MG TAB PO SCH (09:00)
[2019-06-14] MEDS: LISINOPRIL 5 MG TAB PO SCH (09:00)
--- NOTE | 2019-06-14 09:30 | NUR ---
PT IS IN BED RESTING. PT IS RESPONSIVE TO VERBAL STIMULI. SAFETY MEASURES IN PLACE. CALL LIGHT IN REACH.
[2019-06-14 12:00] VITALS: BP 99/58
--- NOTE | 2019-06-14 12:30 | NUR ---
PT IS IN BED RESTING. PT IS RESPONSIVE TO VERBAL STIMULI. SAFETY MEASURES IN PLACE. CALL LIGHT IN REACH.
[2019-06-14] MEDS ORDERED: MAGNESIUM OXIDE 400 MG TAB PO SCH (13:15)
[2019-06-14] MEDS ORDERED: CLIN-178 IV (13:38)
[2019-06-14] MEDS ORDERED: [UNRECOGNIZED DRUG - CODE] IV (13:38)
[2019-06-14] MEDS ORDERED: ASCO1CAP75 PO (13:38)
[2019-06-14] MEDS: HYDROcodone/APAP 5/325 MG 1 TAB TAB PO PRN (14:27)
--- NOTE | 2019-06-14 15:30 | NUR ---
PT WAS DISCHARGED TO DAY. PT WAS TAKEN BY [facility] IN A GURNEY. [facility]. PT WAS IN STABLE CONDITION AT DISCHARGE. ID BAND REMOVED. PT WAS SENT WITH IV LINE TO CONTINUE IV ANTIBIOTICS AT SNF. DISCHARGE PACKET GIVEN TO TRANSPORT AND EXPLAINED TO PATIENT. PT IS UNABLE TO SIGN BECAUSE HE IS BLIND. REPORT GIVEN TO CHRISTINA HENDRICKSON AT [facility] FOR CONTINUATION OF CARE. PT WAS STABLE AT DISCHARGE. BELONGING WITH PATIENT.
[2019-06-14] MEDS ORDERED: VANCOMYCIN 1,000 MG in DEXTROSE 5% 250 ML IV SCH (19:00)
== END 2019-06-14 16:00 | DRG 871 ==
LOC: MED 15:09 → MTU 17:07 → EEVIPCON 17:07
PROVIDERS: ADMIT General Practice; ATTEND General Practice
PROC: 5A1D70Z Performance of Urinary Filtration, Intermittent, Less than 6 Hours Per Day (ICD-10-PCS; 2019-06-11)
PROC: 5A1D70Z Performance of Urinary Filtration, Intermittent, Less than 6 Hours Per Day (ICD-10-PCS; principal; 2019-06-12)
PROC: 5A1D70Z Performance of Urinary Filtration, Intermittent, Less than 6 Hours Per Day (ICD-10-PCS; 2019-06-13)
DX: A41.9 Sepsis, unspecified organism (principal); L89.623 Pressure ulcer of left heel, stage 3; J18.9 Pneumonia, unspecified organism; N18.6 End stage renal disease; N17.0 Acute kidney failure with tubular necrosis; I50.43 Acute on chronic combined systolic (congestive) and diastolic (congestive) heart failure; E43 Unspecified severe protein-calorie malnutrition; M86.8X7 Other osteomyelitis, ankle and foot; E87.2 Acidosis; Z68.1 Body mass index [BMI] 19.9 or less, adult; I42.9 Cardiomyopathy, unspecified; E11.52 Type 2 diabetes mellitus with diabetic peripheral angiopathy with gangrene; T86.19 Other complication of kidney transplant; E11.22 Type 2 diabetes mellitus with diabetic chronic kidney disease; E11.319 Type 2 diabetes mellitus with unspecified diabetic retinopathy without macular edema; E11.69 Type 2 diabetes mellitus with other specified complication; E21.3 Hyperparathyroidism, unspecified; H54.7 Unspecified visual loss; I08.1 Rheumatic disorders of both mitral and tricuspid valves; I25.10 Atherosclerotic heart disease of native coronary artery without angina pectoris; L97.529 Non-pressure chronic ulcer of other part of left foot with unspecified severity; J44.9 Chronic obstructive pulmonary disease, unspecified; E11.621 Type 2 diabetes mellitus with foot ulcer; Y83.0 Surgical operation with transplant of whole organ as the cause of abnormal reaction of the patient, or of later complication, without mention of misadventure at the time of the procedure; D63.1 Anemia in chronic kidney disease; L97.509 Non-pressure chronic ulcer of other part of unspecified foot with unspecified severity; Z99.2 Dependence on renal dialysis; Z95.810 Presence of automatic (implantable) cardiac defibrillator; Z88.0 Allergy status to penicillin; Z79.899 Other long term (current) drug therapy; Z88.1 Allergy status to other antibiotic agents; Z89.431 Acquired absence of right foot; Z80.3 Family history of malignant neoplasm of breast
CPT/HCPCS: 36415; 71045; 73630; 80048; 80053; 80202; 82948; 83036; 83605; 83735; 83880; 84100; 84134; 84443; 84484; 85025; 85610; 85730; 86704; 86706; 86708; 86709; 86803; 87040; 87070; 87075; 87081; 87186; 87340; 90935; 93925; 93970; 96365; 96375; 99285; J0885; J1170; J1644; J1956; J2270; J3370; J3490; J7030; J7060; Q0092